=== PATIENT | male | born 1950 | race Asian ===

== ENCOUNTER 2017-05-15 08:21 | Day surgery (SDC) | payer OTHER ==
[~2017-05-15] VITALS: Ht 162.6 cm; Wt 81.0 kg
[2017-05-15] VITALS (13 sets, daily range): BP systolic 135–161; BP diastolic 74–88; PULSE 68–82; RESP 11–18; Ht 162.6 cm; Wt 81.0 kg
[~2017-05-15 08:21] MED LIST: CEFAZOLIN 2 GM/50 ML (PMX) 50 ML IVPB SCH; SOD CHLORIDE 0.9% 1,000 ML IV SCH
[2017-05-15] MEDS ORDERED: IBUP400T22 PO (08:41)
[2017-05-15] MEDS ORDERED: METF1000 PO (08:42)
[2017-05-15] MEDS ORDERED: ROCURONIUM 50 MG INJ ONE (12:07)
[2017-05-15] MEDS ORDERED: CEFAZOLIN 1 GM INJ ONE (12:07)
[2017-05-15] MEDS ORDERED: GLYCOPYRROLATE 0.4 MG INJ ONE (12:07)
[2017-05-15] MEDS ORDERED: FENTAnyl 50 MCG/ML VIAL ONE (12:07)
[2017-05-15] MEDS ORDERED: MIDAZOLAM 1 MG/ML 2 ML INJ ONE (12:07)
[2017-05-15] MEDS ORDERED: ONDANSETRON 4 MG INJ ONE (12:07)
[2017-05-15] MEDS ORDERED: NEOSTIGMINE 3 MG/3 ML SYRINGE ONE (12:07)
[2017-05-15] MEDS ORDERED: PROPOFOL 20 ML ONE (12:07)
[2017-05-15] MEDS ORDERED: DEXAMETHASONE 4 MG/ML 1 ML INJ ONE (12:08)
[2017-05-15] MEDS ORDERED: POLYMYXIN/BACITRACIN 1L IRRIG ONE (12:10)
[2017-05-15] MEDS ORDERED: MEPERIDINE 25 MG INJ IV PRN (13:00)
[2017-05-15] MEDS ORDERED: FENTAnyl 50 MCG/ML VIAL IV PRN ×3 (13:00)
[2017-05-15] MEDS ORDERED: hydrALAzine 20 MG INJ IV PRN (13:00)
[2017-05-15] MEDS ORDERED: OXYCODONE/ACETAMINOPHEN (5/325) TAB PO PRN ×2 (13:00)
[2017-05-15] MEDS ORDERED: MIDAZOLAM 1 MG/ML 2 ML INJ IV PRN (13:00)
[2017-05-15] MEDS ORDERED: EPHEDrine SULFATE 50 MG/5 ML SYG IV PRN (13:00)
[2017-05-15] MEDS ORDERED: ONDANSETRON 4 MG INJ IV PRN (13:00)
[2017-05-15] MEDS ORDERED: TRIMETHOBENZAMIDE 100 MG/ML VIAL IM PRN (13:00)
[2017-05-15] MEDS ORDERED: DIPHENHYDRAMINE 50 MG INJ IV PRN (13:00)
[2017-05-15] MEDS ORDERED: HYDROmorphONE (0.2 MG/ML) 10ML SYG IV PRN ×3 (13:00)
[2017-05-15] MEDS ORDERED: ALBUTEROL 0.083% (NEB) 2.5 MG/3 ML AMP HHN PRN (13:00)
[2017-05-15] MEDS ORDERED: SUGAMMADEX SODIUM 200 MG/2 ML VIAL IV ONE (13:00)
[2017-05-15] MEDS ORDERED: LABETALOL HCL 20MG INJ IV PRN (13:00)
[2017-05-15] MEDS ORDERED: IPRATROPIUM (NEB) 0.5 MG/2.5 ML AMP HHN PRN (13:00)
[2017-05-15] MEDS ORDERED: BUPIVACAINE 0.25% (MPF) 30 ML INJ INJ ONE (13:04)
--- NOTE | 2017-05-15 13:12 | OPR ---
Date/Time of Note Date/Time of Note DATE: 05/15/17 TIME: 13:07 Operative Report Procedure Date: May 15, 2017 Preoperative Diagnosis recurrent incarcerated incisional hernia Postoperative Diagnosis same Operation Performed 1. laparoscopic recurrent incarcerated incisional hernia repair cpt code 89202 2. implantation of abdominal mesh cpt code 25195 3. laparoscopic lysis of adhesions 4. therapeutic injection of subcutaneous marcaine cpt code 35740 Surgeon: Kiarra LEE Anesthesia Type: general Estimated Blood Loss: 0 - 10 ml's Specimen: none Grafts/Implants ventralight ST 15x20 cm mesh Complications: no Indications This is a 66-year-old male with a recurrent incarcerated incisional hernia. He had previous open incisional hernia repair and indeed. He has a recurrence and he requires surgical repair. Risks alternatives benefits and percent were discussed the patient. Patient expressed understanding consents to the operation. Procedure Description Patient is taken to the OR and prepped and draped in usual sterile fashion. Surgical timeout is performed. IV antibiotics are given. Left upper quadrant 5 mm transverse incision is made with a 15 blade. Using a 5 mm optical trocar optical entry is performed. Pneumoperitoneum is established. Left flank 12 mm optical trocar and left lower quadrant 5 mm optical trochars were placed under direct visualization. Upon initial inspection there is adhesions and incarceration of the hernia. This was reduced laparoscopically using laparoscopic harmonic eufemia. Laparoscopic lysis of adhesions was also performed. The hernia was reduced laparoscopically. The hernia defect was identified this defect was closed with multiple #1 Prolene in multiple #1 Vicryl sutures in interrupted fashion using Endo Close and laparoscopic techniques. After the primary defect was closed the underlay mesh with ventral light ST 15 x 20 cm mesh was secured in place with approximately 4-5 cm of coverage in all directions with secure strap. There is good hemostasis. Ports removed under direct visualization. Skin was closed using skin ivette therapeutic subcutaneous Marcaine was injected into all incision sites. Dry dressings were applied. Kiarra LEE May 15, 2017 13:12
[2017-05-15] MEDS ORDERED: HYDROCODONE/APAP (5/325) TAB PO ONE (13:30)
--- NOTE | 2017-05-15 19:36 | RADRPT ---
Vent Rate: 80 bpm RR Interval: 0 msec NM Interval: 156 msec QRS Duration: 80 msec QT Interval: 368 msec QTC Interval: 424 msec P-R-T [place]: 47 - 59 - 68 degrees Normal sinus rhythm Normal ECG Electronically Signed By: Gerson Carter [id number]
== END 2017-05-15 16:10 | disposition home or self-care (01) ==
LOC: SDS 08:21
PROVIDERS: ATTEND Surgery
DX: K43.0 Incisional hernia with obstruction, without gangrene (principal); E11.9 Type 2 diabetes mellitus without complications; E66.9 Obesity, unspecified; Z68.30 Body mass index [BMI] 30.0-30.9, adult
CPT/HCPCS: 49657; 82962; 93005; C1781; J0360; J0690; J1100; J1170; J2250; J2405; J3010; Z7512; Z7610; J2710